=== PATIENT | male | born 1995 | race American Indian/Alaskan Native ===

== ENCOUNTER → 2024-11-20 | Outpatient (CLI) | payer OTHER, SELFPAY ==
--- NOTE | 2024-11-20 07:50 | RAD_ITS ---
PROCEDURE: ESOPHAGUS DUAL CONTRAST 11/20/2024 REASON FOR EXAM: GERD Dysphagia. TECHNIQUE: ESOPHAGUS DUAL CONTRAST FLUOROSCOPIC TIME: 40 seconds. Radiation dose: 4.9 mGy FLUOROGRAPHIC IMAGES: 36 COMPARISON: None FINDINGS: The patient swallowed barium. No evidence of obstruction. No filling defect is seen. No evidence of gastroesophageal reflux. The patient ingested a 12 mm tablet the barium without any difficulty. RAD/Esophagus Dual Contrast IMPRESSION: Unremarkable air-contrast esophageal examination. [id number]
== END | disposition home or self-care (01) ==
LOC: RAD 07:48
PROVIDERS: Referring Provider Otolaryngology; Visit Provider Otolaryngology
DX: K21.9 Gastro-esophageal reflux disease without esophagitis (principal)
CPT/HCPCS: 74221